=== PATIENT | female | born 2005 | race Caucasian/White ===

== ENCOUNTER 2024-11-27 19:54 | Observation (INO) ==
[2024-11-27 20:29] LABS: Basophils # (auto) 0.03 K/uL (0.00-0.20); Basophils % (auto) 0.3 %; Eosinophils # (auto) 0.09 K/uL (0.00-0.50); Eosinophils % (auto) 0.9 %; Hematocrit (blood only) 27.8 % (37.0-47.0); Hemoglobin 9.4 g/dl (12.0-16.0); Immature Granulocytes # (auto) 0.03 K/uL (0.01-0.20); Immature Granulocytes % (auto) 0.3 %; Lymphocytes # (auto) 1.82 K/uL (1.20-3.40); Lymphocytes % (auto) 17.3 %; Mean Corpuscular Hgb Conc 33.8 g/dL (32.0-36.0); Mean Corpuscular Volume 91.7 fL (80.0-100.0); Mean Platelet Volume 11.5 fL (9.4-12.4); Monocytes # (auto) 0.64 K/uL (0.11-0.59); Monocytes % (auto) 6.1 %; Neutrophils # (auto) 7.88 K/uL (1.40-6.50); Neutrophils % (auto) 75.1 %; Platelet Count 157 K/uL (130-400); RDW Coefficient of Variation 13.2 % (11.5-14.5); RDW Standard Deviation 44.2 fL (36.4-46.3); Red Blood Count 3.03 M/uL (4.20-5.40); White Blood Count 10.49 K/ul (4.8-10.8)
[2024-11-27 20:33] LABS: POC Urine Bilirubin Negative (Negative); POC Urine Blood 250 (Negative); POC Urine Glucose Normal (Normal); POC Urine Ketones Negative (Negative); POC Urine Leukocytes Trace (Negative); POC Urine Nitrite Negative (Negative); POC Urine Protein Trace (Negative); POC Urine Urobilinogen Normal (Normal); POC Urine pH 5 (4.5-7.5)
[2024-11-27 20:44] LABS: Alanine Aminotransferase 10 U/L (7-52); Albumin Globulin Ratio 1.5 (0.9-2); Alkaline Phosphatase 35 U/L (34-104); Anion Gap 4 (3-11); Aspartate Aminotransferase 13 U/L (13-39); BUN Creatinine Ratio 11.6 (10-20); Bilirubin,Total 0.5 mg/dl (0.2-1.0); Blood Urea Nitrogen 5 mg/dl (6-23); Calcium 8.5 mg/dl (8.6-10.3); Carbon Dioxide 26 mmol/L (21-32); Chloride 106 mmol/L (98-107); Globulin 2.7 gm/dl (2.5-4.0); Glucose 80 mg/dl (70-99(Fasting)); Potassium 3.4 mmol/L (3.5-5.1); Sodium 136 mmol/L (136-145); Total Protein 6.7 gm/dl (6.0-8.3)
[2024-11-27 20:46] LABS: Appearance Urine Clear (Clear); Bacteria Urine Automated None Seen (None Seen); Bilirubin Urine Negative (Negative); Blood Urine 3+ (Negative); Cast Urine Automated 0-2 /lpf (0-2); Color Urine Yellow; Epithelial Cell Urine Auto 0-2 /hpf (0-2); Glucose Urine UA Negative (Negative); Ketones Urine Negative (Negative); Leukocyte Esterase Urine 2+ (Negative); Nitrite Urine Negative (Negative); Protein Urine Negative (Negative); RBC Urine Automated >20 /hpf (0-2); Specific Gravity Urine 1.007 (1.000-1.030); Urobilinogen Urine Negative (Negative); pH Urine 6.5 (4.5-7.5)
[2024-11-27 20:53] LABS: Partial Thromboplastin Ratio 0.9; Partial Thromboplastin Time 25 Seconds (21-31); Prothrombin Time 10.5 Seconds (9.0-12.0)
[2024-11-27] MEDS: ONDANSETRON INJ 2 MG/ML 2 ML VIAL IV STA (22:12)
[2024-11-27] MEDS: MoRPHine SULFATE 2 MG/ML CARP IV STA (22:15)
[2024-11-27] MEDS: SODIUM CHLORIDE 0.9% 1,000 ML IV ONE (22:17)
--- NOTE | 2024-11-27 22:45 | OB/GYN Consultation ---
Date of Consultation November 27, 2024 Assessment & Plan (1) Retained products of conception after miscarriage: Plan Given the appearance of the uterus and the likely retained pocs and the drop in her hgb with continued heavy bleeding and passing clots, have recommended that we proceed to D&E under ultrasound guidance to empty the uterus. She agrees. The risks of surgery were discussed with the patient including the risks of anesthesia, bleeding requiring transfusion, infection, poor wound healing, approx. 1% risk of uterine perforation with need for further surgery, hospitalization or intervention. There is also risk of injury to other organs including bowel, bladder, vessels, nerves or ureters. The other risks of any surgery were discussed including heart attack, blood clot, stroke, or . Consent reviewed and signed and will proceed to the OR. Will then monitor overnight to make sure her hgb does not drop any lower. History of Present Illness Reason for Consultation: continued bleeding after miscarriage Requesting Physician: Holger Attending Physician: Joseph History of Present Illness Patient is a 19yowf who was diagnosed with a miscarriage the end of last week at 14 3/7 weeks GA but the fetus was measuring 10 5/7. She was scheduled for D&E today but called noting she passed the fetus and the sac on Wednesday. Noted continued bleeding and tried to get into the office today but was unable to reach. Patient notes she passed fetus wednesday evening but since then has continued to have heavy bleeding and passing clots the size of golf balls every time she gets up. NOtes bleeding comes out in gushes. She feels poorly. Does not want to move. Worn out. Notes cramping discomfort. Has not eaten today. Last sip of water at 8pm. She used medical MJ and last used this am. hgb on 11/13 was 11.7 and today is 9.4 Ultrasound is reviewed by me today, as it has not been offically read yet. The endometrium is very thickened and appears to have blood flow. ? RPOCS? Allergies Allergy/AdvReac Type Severity Reaction Status Date / Time amoxicillin [From Augmentin] AdvReac N/V, Loose Verified 11/24/24 08:07 Stools clavulanic acid AdvReac N/V, Loose Verified 11/24/24 08:07 [From Augmentin] Stools Home Medications Medication Instructions Recorded Confirmed Type medical marjiuana/cannibus 1 dose PO UD PRN Anxiety 05/08/24 11/24/24 History fluoxetine 40 mg capsule 40 mg PO QAM 11/24/24 11/24/24 History gabapentin 100 mg capsule 100 mg PO QAM 11/24/24 11/24/24 History promethazine 12.5 mg tablet 12.5 mg PO Q6H PRN Nausea 11/24/24 11/24/24 History Patient History Medical History Dizziness Occasional dizziness and lightheadedness Referred by PCP to cardio (not scheduled to see until after upcoming surgery) History of cardiac murmur as a child No murmur noted per [facility] PCP visit 11/16/24 PTSD (post-traumatic stress disorder) Anxiety and depression ADHD (attention deficit hyperactivity disorder) Surgical History History of open reduction and internal fixation (ORIF) procedure right>hardware intact S/P tonsillectomy and adenoidectomy History of dental surgery Family History Grandmother (Paternal) Asthma Breast cancer COPD (chronic obstructive pulmonary disease) Coronary heart disease Depression Osteoarthritis Mother Asthma Bipolar disorder Ovarian cancer Depression Osteoarthritis Stroke Sister Asthma Bipolar disorder Depression Father Bipolar disorder Crohn's disease Depression Grandmother (Maternal) Cerebral aneurysm Clotting disorder Coronary heart disease Heart disease Hypertension Osteoarthritis Sudden Grandfather (Paternal) Congenital kidney disease Other Cancer Denies family history of Prostate cancer Alzheimer disease Lung cancer Colorectal cancer Colonic polyp Cystic kidney disease Social History Smoking Status: Current every day smoker Tobacco Type: Cigarettes Cigarettes Per Day: vapes daily; Second Hand Exposure: No; Do You Dip or Chew Tobacco: No; Hx Alcohol Use: No Hx Substance Use: Yes (medical card) Last Used Substance Other:: vape/1-3x per day; only once per day when Preferred Language: Tristanian Communication Ability: Effective Visual Impairment: Limited Hearing Ability: Normal Erp Developer Required: No Beliefs That Will Affect Care: None marital status: Single marital status details: Jimmy (29) [phone] Current Living Situation: Family and Significant Other Current Living Situation Comment: lives with FADUMO, fadumo's brother, girlfriend and 3 kids. 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 How many Children do You have: 0 Feels Safe at Home: Yes Childhood Exposure to Second-Hand Smoke: Yes Diet: regular caffeine: Yes during the past year weight has: other Dental Care, Regularly: No Physical Activity Frequency: Does not Exercise Physical Activity Frequency Comment: hike and walk Seatbelt Use: always Sunscreen Use: No Do you think of yourself as: straight/heterosexual Sexual Activity: has been sexually active within the last 12 months Gender Identity: Female Assistive Devices: None Physical Exam Constitutional: WD/WN, vitals as above Gastrointestinal (Abdomen): soft, nt, nd Psychiatric: A+Ox3, euthymic affect Results & Data Vital Signs (Past 12 Hours) Vital Signs Temp Pulse Pulse Resp BP BP Pulse Ox 11/27/24 22:18 84 16 103/48 L 100 11/27/24 20:29 100 11/27/24 20:29 87 24 118/60 100 11/27/24 20:08 93 H 11/27/24 19:55 36.8 C 96 H 18 95/56 L 100 O2 Del Method 11/27/24 22:18 Room Air 11/27/24 20:29 Room Air 11/27/24 20:29 Room Air 11/27/24 20:08 11/27/24 19:55 Room Air PG Care Time/CCT Total # of Minutes Spent Total Time Spent with Patient: Total time spent is greater than 50% in coordination of care (as documented) at patient's floor/unit and/or counseling patient: Coding Level of Care Code 04862 OFFICE CONSULT LVL (57 - DECISION FOR SURGERY) Diagnoses Retained products of conception after miscarriage O03.4
[2024-11-27] MEDS: DOXYCYCLINE HYCLATE 100 MG CAP PO STA (22:46)
[2024-11-27] MEDS ORDERED: PROMETHAZINE HCL 6.25 MG in SODIUM CHLORIDE 0.9% 50 ML IV PRN (23:29)
[2024-11-27] MEDS ORDERED: ATROPINE SULFATE 0.1 MG/ML 10ML SYR IV PRN (23:29)
[2024-11-27] MEDS ORDERED: ONDANSETRON INJ 2 MG/ML 2 ML VIAL IV PRN (23:29)
[2024-11-27] MEDS ORDERED: fentaNYL citrate PF 100 MCG/2 ML VIAL IV PRN (23:29)
[2024-11-27] MEDS ORDERED: ePHEDrine sulfate 50 MG/ML AMP IV PRN (23:29)
--- NOTE | 2024-11-27 23:29 | Anesthesiology Consultation ---
Date of Service November 27, 2024 Assessment & Plan Chart Review Chart Review: Acceptable Risk for Surgery and Patient NOT seen in Pre Admission Testing Consults Requested none ASA ASA2 Proposed Anesthesia Anesthesia Type: General Risk / Benefits Reviewed With: PT / POA / Parent / Guardian, Accepts Plan and Informed Consent Obtained History Surgery Operation Date: 11/27/24 23:00 Proposed Procedures p Dilation and Evacuation - Jazzy Yost MD, FACOG Height/Weight Height: 6 ft Allergies Allergy/AdvReac Type Severity Reaction Status Date / Time amoxicillin [From Augmentin] AdvReac N/V, Loose Verified 11/24/24 08:07 Stools clavulanic acid AdvReac N/V, Loose Verified 11/24/24 08:07 [From Augmentin] Stools Medications Home Medications Medication Instructions Recorded Confirmed Last Taken medical marjiuana/cannibus 1 dose PO UD PRN Anxiety 05/08/24 11/24/24 Unknown fluoxetine 40 mg capsule 40 mg PO QAM 11/24/24 11/24/24 Unknown gabapentin 100 mg capsule 100 mg PO QAM 11/24/24 11/24/24 Unknown promethazine 12.5 mg tablet 12.5 mg PO Q6H PRN Nausea 11/24/24 11/24/24 Unknown NPO Date Last Intake of Fluids: 11/26/24 Time Last Intake of Fluids: 21:00 Last Intake of Fluids Comment: Sips of water with meds. Date Last Intake of Solids: 11/26/24 Time Last Intake of Solids: 22:45 Past Medical History Medical History Dizziness Occasional dizziness and lightheadedness Referred by PCP to cardio (not scheduled to see until after upcoming surgery) History of cardiac murmur as a child No murmur noted per [facility] PCP visit 11/16/24 PTSD (post-traumatic stress disorder) Anxiety and depression ADHD (attention deficit hyperactivity disorder) Exercise / Class Metabolic Activity II 4-5 Yardwork/Stairs/Walk up hill Past Family History Family History Grandmother (Paternal) Asthma Breast cancer COPD (chronic obstructive pulmonary disease) Coronary heart disease Depression Osteoarthritis Mother Asthma Bipolar disorder Ovarian cancer Depression Osteoarthritis Stroke Sister Asthma Bipolar disorder Depression Father Bipolar disorder Crohn's disease Depression Grandmother (Maternal) Cerebral aneurysm Clotting disorder Coronary heart disease Heart disease Hypertension Osteoarthritis Sudden Grandfather (Paternal) Congenital kidney disease Other Cancer Denies family history of Prostate cancer Alzheimer disease Lung cancer Colorectal cancer Colonic polyp Cystic kidney disease Past Surgical History Surgical History History of open reduction and internal fixation (ORIF) procedure right>hardware intact S/P tonsillectomy and adenoidectomy History of dental surgery Past Anesthesia History No Hx of Anesthesia Complications and No Family Hx of Anesthesia Complications History of PONV No Hx of PONV and No Hx of Motion Sickness Social History Smoking Status: Current every day smoker Smoking cigarettes per day: vapes daily Do You Dip or Chew Tobacco: No Hx Alcohol Use: No Hx Substance Use: Yes (medical card) substance use type: marijuana Last Used Substance Other:: vape/1-3x per day; only once per day when Physical Exam Vital Signs Last Vital Signs Temp 36.8 C 11/27/24 19:55 Pulse 83 11/27/24 22:45 Resp 22 11/27/24 22:45 BP 111/52 L 11/27/24 22:45 Pulse Ox 100 11/27/24 22:45 O2 Del Method Room Air 11/27/24 22:45 ENMT Mouth: no dentition abnormality Thyromental Distance: > or= 3.5 Finger Breadths Mallampati Class: II Neck normal visual inspection Respiratory normal respiratory effort Auscultation: lungs clear to auscultation bilaterally Cardiovascular Rate/Rhythm: regular rate and regular rhythm Psychiatric Orientation: alert Testing Laboratory Results 11/27/24 20:10 11/27/24 20:10 PT 10.5 Seconds (9.0-12.0) 11/27/24 20:10 INR 1.0 (0.9-1.1) 11/27/24 20:10 APTT 25 Seconds (21-31) 11/27/24 20:10 HCG, Quant 243 mIU/ml 11/27/24 20:10 Urine Color Yellow 11/27/24 20:24 Urine Appearance Clear (Clear) 11/27/24 20:24 Urine pH 6.5 (4.5-7.5) 11/27/24 20:24 Ur Specific [place] 1.007 (1.000-1.030) 11/27/24 20:24 Urine Protein Negative (Negative) 11/27/24 20:24 Urine Glucose (UA) Negative (Negative) 11/27/24 20:24 Urine Ketones Negative (Negative) 11/27/24 20:24 Urine Nitrite Negative (Negative) 11/27/24 20:24 Ur Leukocyte Esterase 2+ (Negative) H 11/27/24 20:24 Urine WBC (Auto) 11-20 /hpf (0-5) H 11/27/24 20:24 Urine RBC (Auto) >20 /hpf (0-2) H 11/27/24 20:24 U Hyaline Cast (Auto) 0-2 /lpf (0-2) 11/27/24 20:24 U Epithel Cells (Auto) 0-2 /hpf (0-2) 11/27/24 20:24 Urine Bacteria (Auto) None Seen (None Seen) 11/27/24 20:24 11/27/24 20:10 HCG, Quant 243
--- NOTE | 2024-11-28 | Operative Report ---
[facility] Post Operative Report Pre & Post Diagnosis Operation Date: 11/27/24 23:00 <Preop--retained pocs hemorrhage postop--same I identified the patient and participated in the time-out.: Yes Procedure Operation Date: 11/27/24 23:00 Actual Procedures p Dilation and Evacuation under Ultrasound Guidance - Jazzy Yost MD, FACOG Surgeon Jazzy Yost MD, FACOG Renewals Manager none Estimated Blood Loss 300 Findings Consistent with Post-Op Diagnosis pocs were in the cervical os removed with ring forceps Fluids IVF--600cc Specimens pocs Drains none Anesthesia Type General Complications none Disposition Accompanied Patient To Recovery: No Disposition: Recovery Room Indications 19yowf with iufd at 14 weeks, measuring 10.5 weeks. Passed fetus on Wednesday but continued bleeding and passing clots Description of Procedure The patient was taken to the operating room where she was identified verbally and by bracelet. She placed on the operating table where general anesthetic was induced without difficulty. The patient was placed in the dorsal lithotomy position in candy cane stirrups and prepped and draped in the normal sterile fashion. A time-out was held noting the correct patient, position, procedure, no need for antibiotics. There were no concerns. An exam under anesthesia was done with the above noted findings. a weighted speculum was placed in the vagina. The anterior lip of the cervix was grasped with an Allis. Pocs noted in the os and teased out with ring forceps. Ring forcpes placed in the uterus and pocs and placental tissue removed. Then using us guidance a 10mm currete was placed and further pocs removed. A curettage was performed in 365 degrees. The patient was given methergine IM and uterine massage. Bleeding then significantly slowed. Watched for about 5 minutes and bleeding remained good. The procedure was terminated. All instruments were removed from the vagina. All sponge, lap and needle counts were correct times two. The patient was taken to the recovery room instable condition. I attest to the content of the Intraoperative Record and any orders documented therein. Any exceptions are noted below.
--- NOTE | 2024-11-28 00:04 | Ultrasound Report ---
Exam(s): US OB 1st TRIMESTER EXAM: US Pelvis Transabdominal, Complete and US Duplex Arterial/Venous of the Pelvis, Complete CLINICAL HISTORY: Reason for exam: recent miscarry. TECHNIQUE: Real-time complete transabdominal pelvic ultrasound with image documentation. Real-time duplex ultrasound scan of the arterial and venous flow of the pelvis with color Doppler flow and spectral waveform analysis. COMPARISON: No relevant prior studies available. FINDINGS: Uterus/cervix: The endometrium is thickened and hypervascular measuring 4.8 cm. No myometrial mass. Right ovary: Right ovary measures 3.7 x 1.7 x 1.7 cm. No torsion. Left ovary: Left ovary measures 3 x 2.2 x 2.8 cm. No torsion. Free fluid: Free fluid seen within the dependent pelvis. Bladder: Unremarkable as visualized. Wall is normal thickness for degree of distention. Other findings: Patient was unable to tolerate the transvaginal imaging secondary to pain. IMPRESSION: The endometrium is thickened and contains hypervascular material concerning for retained products of conception. An intrauterine is not seen on this exam. Electronically signed by: Gonzales Paul MD 11/28/24 00:03 AM
[2024-11-28] MEDS ORDERED: MoRPHine SULFATE 2 MG/ML CARP IV PRN (00:05)
[2024-11-28] MEDS ORDERED: ONDANSETRON INJ 2 MG/ML 2 ML VIAL IV PRN (00:05)
[2024-11-28] MEDS ORDERED: ACETAMINOPHEN 325 MG TAB PO PRN (00:05)
[2024-11-28 00:25] VITALS: RESP 18
--- NOTE | 2024-11-28 00:26 | Emergency Department Note ---
ED Provider Note CHIEF COMPLAINT: Vaginal bleeding HISTORY OF PRESENT ILLNESS: This 19-year-old female patient with past medical history of PTSD, ADHD, presents to the emergency department with complaints of heavy vaginal bleeding. The patient was evaluated in this ER 3 days ago. She was approximately 14 weeks and miscarried. Patient has had difficulty getting the bleeding to slow down. Patient states she is passing heavy clots. REVIEW OF SYSTEMS: A review of systems was performed with positives and pertinent negatives listed in the history of present illness. 10 systems were reviewed and are otherwise negative. ALLERGIES: see below MEDICATIONS: see below PMH: see below SOCIAL HISTORY: see below DDx: Dehydration, electrolyte abnormality, first trimester , UTI, kidney stone among others. PHYSICAL EXAM: Vital signs reviewed. General: Well-appearing 19-year-old female in no significant distress. HEENT: No scleral icterus, PERRLA, neck supple. Atraumatic. Cardiovascular: Regular rate and rhythm, no extra sounds. Pulmonary: Clear to auscultation bilaterally, normal work of breathing. Abdomen: Soft, nontender, nondistended, positive bowel sounds. Musculoskeletal: Atraumatic, no peripheral edema. Neurologic: Patient awake alert and oriented x 3, speech is clear Skin: Warm, dry, no rash EMERGENCY DEPARTMENT COURSE/MDM: [] MONITORING: An order for cardiac monitoring was placed and the patient is noted to be in a [] at [] beats per minute. RADIOLOGY: EKG: DISPOSITION: Past Med/Surg History Problem List (Updated 11/27/24 @ 22:47 by Jazzy Yost MD, FACOG) Retained products of conception after miscarriage Encounter for pre-operative examination demise before 22 weeks with retention of fetus (Acute) Threatened miscarriage (Acute) PTSD (post-traumatic stress disorder) ADHD (attention deficit hyperactivity disorder) Carrier of group B Streptococcus Early stage of Encounter for anatomic survey Supervision of normal intrauterine in primigravida Anxiety and depression Medical History Dizziness Occasional dizziness and lightheadedness Referred by PCP to cardio (not scheduled to see until after upcoming surgery) History of cardiac murmur as a child No murmur noted per [facility] PCP visit 11/16/24 PTSD (post-traumatic stress disorder) Anxiety and depression ADHD (attention deficit hyperactivity disorder) Surgical History History of open reduction and internal fixation (ORIF) procedure right>hardware intact S/P tonsillectomy and adenoidectomy History of dental surgery Family History Grandmother (Paternal) Asthma Breast cancer COPD (chronic obstructive pulmonary disease) Coronary heart disease Depression Osteoarthritis Mother Asthma Bipolar disorder Ovarian cancer Depression Osteoarthritis Stroke Sister Asthma Bipolar disorder Depression Father Bipolar disorder Crohn's disease Depression Grandmother (Maternal) Cerebral aneurysm Clotting disorder Coronary heart disease Heart disease Hypertension Osteoarthritis Sudden Grandfather (Paternal) Congenital kidney disease Other Cancer Denies family history of Prostate cancer Alzheimer disease Lung cancer Colorectal cancer Colonic polyp Cystic kidney disease Social History Smoking Status: Current every day smoker Tobacco Type: Cigarettes Cigarettes Per Day: vapes daily; Second Hand Exposure: No; Do You Dip or Chew Tobacco: No; Hx Alcohol Use: No Hx Substance Use: Yes (medical card) Last Used Substance Other:: vape/1-3x per day; only once per day when Preferred Language: Czech Communication Ability: Effective Visual Impairment: Limited Hearing Ability: Normal [place] Required: No Beliefs That Will Affect Care: None marital status: Single marital status details: Jimmy (29) [phone] Current Living Situation: Family and Significant Other Current Living Situation Comment: lives with FADUMO, fadumo's brother, girlfriend and 3 kids. 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 How many Children do You have: 0 Feels Safe at Home: Yes Childhood Exposure to Second-Hand Smoke: Yes Diet: regular caffeine: Yes during the past year weight has: other Dental Care, Regularly: No Physical Activity Frequency: Does not Exercise Physical Activity Frequency Comment: hike and walk Seatbelt Use: always Sunscreen Use: No Do you think of yourself as: straight/heterosexual Sexual Activity: has been sexually active within the last 12 months Gender Identity: Female Assistive Devices: None Allergies Allergies Allergy/AdvReac Type Severity Reaction Status Date / Time amoxicillin [From Augmentin] AdvReac N/V, Loose Verified 11/24/24 08:07 Stools clavulanic acid AdvReac N/V, Loose Verified 11/24/24 08:07 [From Augmentin] Stools Home Meds Home Medications Medication Instructions Recorded Confirmed medical marjiuana/cannibus 1 dose PO UD PRN Anxiety 05/08/24 11/24/24 fluoxetine 40 mg capsule 40 mg PO QAM 11/24/24 11/24/24 gabapentin 100 mg capsule 100 mg PO QAM 11/24/24 11/24/24 promethazine 12.5 mg tablet 12.5 mg PO Q6H PRN Nausea 11/24/24 11/24/24 Results & Data (ED) Vital Signs Vital Signs - 24 hr 11/27/24 19:55 11/27/24 20:08 11/27/24 20:29 Temperature 36.8 C Temperature Source Temporal Artery Scan Pulse Rate 96 H 93 H Pulse Rate [Apical] 87 Pulse Rhythm [Apical] Pulse Strength [Apical] Respiratory Rate 18 24 Respiratory Effort / Characteristics Non-Labored Spontaneous Respiratory Depth Normal Respiratory Pattern Blood Pressure 95/56 L Blood Pressure [Left Arm] 118/60 Blood Pressure Mean 69 Blood Pressure Mean [Left Arm] 79 Blood Pressure Position Sitting Blood Pressure Position [Left Arm] Pulse Oximetry 100 100 Oxygen Delivery Method Room Air Room Air Oxygen Flow Rate Sepsis Recent Fever Within 48 Hours No Sepsis New/Unexplained Change in Mental Status N/A Sepsis Action Taken by Nursing No Action Required 11/27/24 20:29 11/27/24 22:18 11/27/24 22:45 Temperature Temperature Source Pulse Rate Pulse Rate [Apical] 84 83 Pulse Rhythm [Apical] Pulse Strength [Apical] Respiratory Rate 16 22 Respiratory Effort / Characteristics Non-Labored Spontaneous Respiratory Depth Normal Respiratory Pattern Regular Blood Pressure Blood Pressure [Left Arm] 103/48 L 111/52 L Blood Pressure Mean Blood Pressure Mean [Left Arm] 66 71 Blood Pressure Position Blood Pressure Position [Left Arm] Pulse Oximetry 100 100 100 Oxygen Delivery Method Room Air Room Air Room Air Oxygen Flow Rate Sepsis Recent Fever Within 48 Hours Sepsis New/Unexplained Change in Mental Status Sepsis Action Taken by Nursing 11/28/24 00:09 Temperature 37.0 C Temperature Source Axillary Pulse Rate Pulse Rate [Apical] 76 Pulse Rhythm [Apical] Regular Pulse Strength [Apical] Normal Respiratory Rate 16 Respiratory Effort / Characteristics Non-Labored Spontaneous Respiratory Depth Normal Respiratory Pattern Regular Blood Pressure Blood Pressure [Left Arm] 102/50 L Blood Pressure Mean Blood Pressure Mean [Left Arm] 67 Blood Pressure Position Blood Pressure Position [Left Arm] Lying Pulse Oximetry 100 Oxygen Delivery Method Nasal Cannula Oxygen Flow Rate 2 Sepsis Recent Fever Within 48 Hours Sepsis New/Unexplained Change in Mental Status Sepsis Action Taken by Nursing Laboratory Data 11/27/24 20:10 11/27/24 20:10 Lab Results 11/27/24 11/27/24 Range/Units 20:10 20:24 WBC 10.49 (4.8-10.8) K/ul RBC 3.03 L (4.20-5.40) M/uL Hgb 9.4 L (12.0-16.0) g/dl Hct 27.8 L (37.0-47.0) % MCV 91.7 (80.0-100.0) fL MCH 31.0 (25.0-34.0) pg MCHC 33.8 (32.0-36.0) g/dL RDW Std Deviation 44.2 (36.4-46.3) fL RDW Coeff of Marybel 13.2 (11.5-14.5) % Plt Count 157 (130-400) K/uL MPV 11.5 (9.4-12.4) fL Immature Gran % (Auto) 0.3 % Neut % (Auto) 75.1 % Lymph % (Auto) 17.3 % Mills % (Auto) 6.1 % Eos % (Auto) 0.9 % Baso % (Auto) 0.3 % Neut # (Auto) 7.88 H (1.40-6.50) K/uL Lymph # (Auto) 1.82 (1.20-3.40) K/uL Mills # (Auto) 0.64 H (0.11-0.59) K/uL Eos # (Auto) 0.09 (0.00-0.50) K/uL Baso # (Auto) 0.03 (0.00-0.20) K/uL Immature Gran # (Auto) 0.03 (0.01-0.20) K/uL PT 10.5 (9.0-12.0) Seconds INR 1.0 (0.9-1.1) APTT 25 (21-31) Seconds PTT Ratio 0.9 Sodium 136 (136-145) mmol/L Potassium 3.4 L (3.5-5.1) mmol/L Chloride 106 (98-107) mmol/L Carbon Dioxide 26 (21-32) mmol/L Anion Gap 4 (3-11) BUN 5 L (6-23) mg/dl Creatinine 0.43 L (0.6-1.2) mg/dl Est Cr Clr Drug Dosing Not Reportable eGFR 142.71 BUN/Creatinine Ratio 11.6 (10-20) Glucose 80 (70-99(Fasting)) mg/dl Calcium 8.5 L (8.6-10.3) mg/dl Total Bilirubin 0.5 (0.2-1.0) mg/dl AST 13 (13-39) U/L ALT 10 (7-52) U/L Alkaline Phosphatase 35 (34-104) U/L Total Protein 6.7 (6.0-8.3) gm/dl Albumin 4.0 (3.4-5.0) gm/dl Globulin 2.7 (2.5-4.0) gm/dl Albumin/Globulin Ratio 1.5 (0.9-2) HCG, Quant 243 mIU/ml Urine Color Yellow Urine Appearance Clear (Clear) Urine pH 6.5 (4.5-7.5) POC Urine pH 5 (4.5-7.5) Ur Specific [place] 1.007 (1.000-1.030) Urine Protein Negative (Negative) POC Urine Protein Trace H (Negative) Urine Glucose (UA) Negative (Negative) POC Ur Glucose (UA) Normal (Normal) Urine Ketones Negative (Negative) POC Urine Ketones Negative (Negative) Urine Blood 3+ H (Negative) POC Urine Blood 250 H (Negative) Urine Nitrite Negative (Negative) POC Urine Nitrite Negative (Negative) Urine Bilirubin Negative (Negative) POC Urine Bilirubin Negative (Negative) Urine Urobilinogen Negative (Negative) POC Urine Urobilinogen Normal (Normal) Ur Leukocyte Esterase 2+ H (Negative) POC U Leukocyte Esteras Trace H (Negative) Urine WBC (Auto) 11-20 H (0-5) /hpf Urine RBC (Auto) >20 H (0-2) /hpf U Hyaline Cast (Auto) 0-2 (0-2) /lpf U Epithel Cells (Auto) 0-2 (0-2) /hpf Urine Bacteria (Auto) None Seen (None Seen) Administered Medications Discontinued Medications Doxycycline Hyclate (Doxycycline Hyclate 100 Mg Cap) 100 mg PO NOW STA Stop: 11/27/24 22:42 Last Admin: 11/27/24 22:46 Dose: 100 mg Documented By: EMB Sodium Chloride (Nss) 1,000 mls @ 999 mls/hr IV .Q1H1M ONE Stop: 11/27/24 22:55 Last Admin: 11/27/24 22:17 Dose: 999 mls/hr Documented By: MED Morphine Sulfate (Morphine Sulfate 2 Mg/Ml Carp) 2 mg IV NOW STA Stop: 11/27/24 21:56 Last Admin: 11/27/24 22:15 Dose: 2 mg Documented By: MED Ondansetron HCl (Ondansetron Inj 2 Mg/Ml 2 Ml Vial) 4 mg IV NOW STA Stop: 11/27/24 21:56 Last Admin: 11/27/24 22:12 Dose: 4 mg Documented By: MED Imaging Data Radiologist's Impression: Ultrasound 11/27/24 20:03 Exam(s): US OB 1st TRIMESTER EXAM: US Pelvis Transabdominal, Complete and US Duplex Arterial/Venous of the Pelvis, Complete CLINICAL HISTORY: Reason for exam: recent miscarry. TECHNIQUE: Real-time complete transabdominal pelvic ultrasound with image documentation. Real-time duplex ultrasound scan of the arterial and venous flow of the pelvis with color Doppler flow and spectral waveform analysis. COMPARISON: No relevant prior studies available. FINDINGS: Uterus/cervix: The endometrium is thickened and hypervascular measuring 4.8 cm. No myometrial mass. Right ovary: Right ovary measures 3.7 x 1.7 x 1.7 cm. No torsion. Left ovary: Left ovary measures 3 x 2.2 x 2.8 cm. No torsion. Free fluid: Free fluid seen within the dependent pelvis. Bladder: Unremarkable as visualized. Wall is normal thickness for degree of distention. Other findings: Patient was unable to tolerate the transvaginal imaging secondary to pain. IMPRESSION: The endometrium is thickened and contains hypervascular material concerning for retained products of conception. An intrauterine is not seen on this exam. Electronically signed by: Gonzales Paul MD 11/28/24 00:03 AM Discharge Plan Visit Data Chief Complaint: Vaginal Bleeding Stated Complaint: VAGINAL BLEEDING, FEVER, MISCARRIED ON WEDNESDAY ED Provider: Frances Wren Patient Disposition: Admitted As Inpatient Discharge Instructions Interventions: ED Discharge Assessment Last Done: 11/27/24 22:51
[2024-11-28] MEDS: DOXYCYCLINE HYCLATE 100 MG CAP PO ONE (01:39)
[2024-11-28] MEDS: oxyCODONE/ACETAMINOPHEN 5mg/325mg TAB PO PRN (01:39)
--- NOTE | 2024-11-28 02:35 | Anesthesiology Progress Note ---
Date of Service November 28, 2024 Anesthesia Post Procedure Vital Signs Vital Signs: Temp Pulse Pulse Pulse Resp BP BP 11/28/24 02:24 68 18 96/57 L 11/28/24 01:54 72 18 99/46 L 11/28/24 01:25 36.6 C 70 18 100/50 L 11/28/24 00:39 36.7 C 72 18 110/55 L 11/28/24 00:29 36.8 C 74 18 110/57 L 11/28/24 00:19 37.0 C 75 18 109/59 L 11/28/24 00:09 37.0 C 76 16 102/50 L 11/27/24 22:45 83 22 111/52 L 11/27/24 22:18 84 16 103/48 L 11/27/24 20:29 11/27/24 20:29 87 24 118/60 11/27/24 20:08 93 H 11/27/24 19:55 36.8 C 96 H 18 95/56 L Pulse Ox O2 Del Method O2 Flow Rate 11/28/24 02:24 98 Room Air 11/28/24 01:54 100 Room Air 11/28/24 01:25 96 Room Air 11/28/24 00:39 98 Room Air 11/28/24 00:29 98 Room Air 11/28/24 00:19 98 Room Air 11/28/24 00:09 100 Nasal Cannula 2 11/27/24 22:45 100 Room Air 11/27/24 22:18 100 Room Air 11/27/24 20:29 100 Room Air 11/27/24 20:29 100 Room Air 11/27/24 20:08 11/27/24 19:55 100 Room Air Pain Intensity Vaginal: Pain Intensity: 6 Transfer of Care Handoff Completed per policy Notes Mental Status: alert / awake / arousable Patient Amnestic to Procedure: Yes Nausea / Vomiting: adequately controlled Pain: adequately controlled Airway Patency, RR, SpO2: stable & adequate BP & HR: stable & adequate Hydration State: stable & adequate Anesthetic Complications: no major complications apparent
[2024-11-28] MEDS: IBUPROFEN 600 MG TAB PO SCH (03:15)
[2024-11-28] MEDS ORDERED: Nursing to Pharmacy Communication SCH (06:00)
[2024-11-28 06:22] LABS: Hematocrit (blood only) 23.6 % (37.0-47.0); Hemoglobin 7.8 g/dl (12.0-16.0); Mean Corpuscular Hemoglobin 30.6 pg (25.0-34.0); Mean Corpuscular Hgb Conc 33.1 g/dL (32.0-36.0); Mean Corpuscular Volume 92.5 fL (80.0-100.0); Mean Platelet Volume 12.3 fL (9.4-12.4); Platelet Count 122 K/uL (130-400); RDW Coefficient of Variation 13.2 % (11.5-14.5); RDW Standard Deviation 45.1 fL (36.4-46.3); Red Blood Count 2.55 M/uL (4.20-5.40); White Blood Count 7.55 K/ul (4.8-10.8)
[2024-11-28 06:42] LABS: Basophils # (auto) 0.01 K/uL (0.00-0.20); Basophils % (auto) 0.1 %; Eosinophils # (auto) 0.01 K/uL (0.00-0.50); Eosinophils % (auto) 0.1 %; Immature Granulocytes # (auto) 0.03 K/uL (0.01-0.20); Immature Granulocytes % (auto) 0.4 %; Lymphocytes # (auto) 0.59 K/uL (1.20-3.40); Lymphocytes % (auto) 7.8 %; Monocytes # (auto) 0.09 K/uL (0.11-0.59); Monocytes % (auto) 1.2 %; Neutrophils # (auto) 6.82 K/uL (1.40-6.50); Neutrophils % (auto) 90.4 %; Polychromasia 1+
[2024-11-28] MEDS: IBUPROFEN 600 MG TAB PO PRN (07:31)
--- NOTE | 2024-11-28 08:07 | Gynecologic Progress Note ---
Date of Service November 28, 2024 Assessment & Plan (1) Retained products of conception after miscarriage: (2) Anemia: Plan See how patient does through the am and if she will need transfusion. I am hopeful that she will not. Will have oncoming call doc check on her later toda y. Is not having any more significant bleeding. Anticipate d/c later today. Admission and Anticipated Discharge Date Admission Date: November 28, 2024 Subjective Patient doing well this am. Has been up to void and has tolerated regular diet without n/v. She notes some mild dizziness with ambulating. Patient notes she has an appt today with cards to be evaluated for potential POTS so she has been dealing with some baseline lightheaded/dizziness. Bleeding has been minimal . Patient notes alot of uncomfortable cramping. Hgb this am is 7.8. Patient notes she is hungry. Physical Exam Constitutional: WD/WN, vitals as above Gastrointestinal (Abdomen): soft, nt, nd Psychiatric: A+Ox3, euthymic affect Results & Data Vital Signs (Past 12 Hours) Vital Signs Temp Pulse Pulse Pulse Resp BP Pulse Ox 11/28/24 04:40 36.2 C L 61 18 98/50 L 98 11/28/24 03:13 64 18 101/39 L 97 11/28/24 02:24 68 18 96/57 L 98 11/28/24 01:54 72 18 99/46 L 100 11/28/24 01:25 36.6 C 70 18 100/50 L 96 11/28/24 00:39 36.7 C 72 18 110/55 L 98 11/28/24 00:29 36.8 C 74 18 110/57 L 98 11/28/24 00:19 37.0 C 75 18 109/59 L 98 11/28/24 00:09 37.0 C 76 16 102/50 L 100 11/27/24 22:45 83 22 111/52 L 100 11/27/24 22:18 84 16 103/48 L 100 11/27/24 20:29 100 11/27/24 20:29 87 24 118/60 100 11/27/24 20:08 93 H O2 Del Method O2 Flow Rate 11/28/24 04:40 Room Air 11/28/24 03:13 Room Air 11/28/24 02:24 Room Air 11/28/24 01:54 Room Air 11/28/24 01:25 Room Air 11/28/24 00:39 Room Air 11/28/24 00:29 Room Air 11/28/24 00:19 Room Air 11/28/24 00:09 Nasal Cannula 2 11/27/24 22:45 Room Air 11/27/24 22:18 Room Air 11/27/24 20:29 Room Air 11/27/24 20:29 Room Air 11/27/24 20:08 PG Care Time/CCT Total # of Minutes Spent Total Time Spent with Patient: Total time spent is greater than 50% in coordination of care (as documented) at patient's floor/unit and/or counseling patient: Coding Level of Care Code 08750 SUB INP/OBS CARE 11/18MIN Diagnoses Retained products of conception after miscarriage O03.4 Anemia D64.9
[2024-11-28 08:52] VITALS: BP 108/49; PULSE 64; TEMP 98.4; O2SAT 99
[2024-11-28] MEDS: FLUoxetine HCL 20 MG CAP PO STA (09:52)
[2024-11-28] MEDS: GABAPENTIN 100 MG CAP PO ONE (09:53)
--- NOTE | 2024-11-29 10:28 | Discharge Summary ---
Date of Service November 29, 2024 Admission HPI Per Admitting Provider Patient is a 19yowf who was diagnosed with a miscarriage the end of last week at 14 3/7 weeks GA but the fetus was measuring 10 5/7. She was scheduled for D&E today but called noting she passed the fetus and the sac on Wednesday. Noted continued bleeding and tried to get into the office today but was unable to reach. Patient notes she passed fetus wednesday evening but since then has continued to have heavy bleeding and passing clots the size of golf balls every time she gets up. NOtes bleeding comes out in gushes. She feels poorly. Does not want to move. Worn out. Notes cramping discomfort. Has not eaten today. Last sip of water at 8pm. She used medical MJ and last used this am. hgb on 11/13 was 11.7 and today is 9.4 Ultrasound is reviewed by me today, as it has not been offically read yet. The endometrium is very thickened and appears to have blood flow. ? RPOCS? Discharge Data Consultations 11/27/24 22:47 ED Decision to Admit Stat Procedures Performed Operation Date: 11/27/24 23:00 Actual Procedures p Dilation and Evacuation under Ultrasound Guidance - Jazzy Yost [place], [facility] (1) Anemia: (2) Retained products of conception after miscarriage: Plan Patient underwent a D&E for RPOCs. EBL 300cc. Was observed overnight with minimal bleeding. Her hgb dropped to 7.8 from 11.7. However, she tolerated a r egular diet and was able to ambulate without significant lightheadedness/dizziness. She was d/c home . She has a postop appt with Dr. Ji already scheduled. Coding Level of Care Code None Diagnoses Anemia D64.9 Retained products of conception after miscarriage O03.4
== END 2024-11-28 10:20 | disposition home or self-care (01) ==
LOC: ED 19:54 → 4E1 22:51 → OR 22:58